=== PATIENT | male | born 1980 | race Caucasian/White ===

== ENCOUNTER 2018-01-21 23:40 | Emergency (ER) | payer SELFPAY ==
[2018-01-22 00:08] LABS: Absolute Lymphocytes (CBC) 2.9 K/uL (0.7-4.9); Absolute Monocytes 0.8 K/uL (0.1-1.3); Absolute Neutrophil 6.7 K/uL (1.8-8.0); Basophils % 0.9 % (0-1.3); Hematocrit 41.3 % (39.6-49.0); Lymphocytes % 27.3 % (15.3-44.8); MCH 33.3 pg (27.0-35.0); MCV 94.7 fL (80-100); MPV 7.9 fL (7.6-11.3); Monocytes % 7.5 % (3.3-12.3); RBC Red Blood Cell Count 4.36 M/uL (4.33-5.43)
[2018-01-22 00:09] LABS: Protime INR 1.06
[2018-01-22 00:21] LABS: Urine Blood NEGATIVE (NEG); Urine Glucose NEGATIVE (NEG); Urine Protein NEGATIVE (NEG); Urine Specific Gravity 1.025 (1.005-1.030); Urine pH 6.5 (5.0-7.0)
[2018-01-22 00:26] LABS: ALT/SGPT 18 U/L (12-78); AST/SGOT 11 U/L (15-37); Albumin 3.8 g/dL (3.4-5.0); Alkaline Phosphatase 66 U/L (45-117); BUN Blood Urea Nitrogen 13 mg/dL (7-18); Bicarbonate 25 mmol/L (21-32); Bilirubin Direct 0.1 mg/dL (0-0.2); Bilirubin Total 0.4 mg/dL (0.2-1.0); Glucose Level 145 mg/dL (74-106); Potassium 3.3 mmol/L (3.5-5.1); Protein, Total 7.1 g/dL (6.4-8.2); Sodium Level 139 mmol/L (136-145)
[2018-01-22 00:27] LABS: Alcohol Serum/Plasma 4 mg/dL (0-3)
[2018-01-22 00:39] LABS: Barbiturates NEGATIVE (NEGATIVE); Benzodiazepines NEGATIVE (NEGATIVE); Cocaine NEGATIVE (NEGATIVE); METHAMPHETAM NEGATIVE (NEGATIVE); Methadone NEGATIVE (NEGATIVE); Opiates NEGATIVE (NEGATIVE); Phencyclidine NEGATIVE (NEGATIVE); THC Cannibis NEGATIVE (NEGATIVE)
[2018-01-22] MEDS ORDERED: POTASSIUM 25 MEQ EFFERV TAB ONE ×2 (01:50→01:54)
[2018-01-22 09:41] LABS: Potassium 3.8 mmol/L (3.5-5.1)
--- NOTE | 2018-01-22 13:53 | EKG ---
Test Date: 2018-01-21 Test Time: 23:49:06 Tube Washer: BP MEASUREMENT RESULTS: Intervals: Rate: 79 CA: 178 QRSD: 88 QT: 350 QTc: 401 [place]: P: 66 CA: 178 QRS: 70 T: 64 INTERPRETIVE STATEMENTS: Normal sinus rhythm Possible Left atrial enlargement ST elevation, consider early repolarization, pericarditis, or injury Nonspecific ST abnormality Abnormal ECG Compared to ECG 11/30/2013 15:44:54 Sinus bradycardia no longer present ST (T wave) deviation still present Electronically Signed On 01-22-18 13:51:49 CDT by Victorino Barrientos
--- NOTE | 2018-01-22 14:48 | ER ---
Nurse's Notes [facility] Name: Tyson Villafana Age: 37 yrs Sex: Male : 1980 Arrival Date: 01/21/2018 Time: 23:43 Bed 7 Private MD: Diagnosis: Suicidal ideations Presentation: 01/21 23:51 Presenting complaint: EMS states: pt wants help to "stay off cush" pt stated he has ak1 thoughts of "cutting my wrist or throat" last used cush 24hrs [employer]. Transition of care: patient was not received from another setting of care. Onset of symptoms is unknown. Risk Assessment: Do you want to hurt yourself or someone else? Patient reports desire/thoughts of hurting themselves or someone else. Provider notified. Initial Sepsis Screen: Does the patient meet any 2 criteria? No. Patient's initial sepsis screen is negative. Does the patient have a suspected source of infection? No. Patient's initial sepsis screen is negative. Care prior to arrival: None. 23:51 Method Of Arrival: EMS: [facility] ak 23:51 Acuity: KARINA 2 ak1 Triage Assessment: 23:53 General: Appears in no apparent distress. slender, Behavior is calm, cooperative. Pain: ak1 Complains of pain in body aches. EENT: No signs and/or symptoms were reported regarding the EENT system. Neuro: Level of Consciousness is awake, alert, obeys commands, Oriented to person, place, time, situation, Chucking And Boring Machine Operator are equal bilaterally Moves all extremities. Gait is steady, Speech is normal. Cardiovascular: No deficits noted. Respiratory: No deficits noted. GI: No signs and/or symptoms were reported involving the gastrointestinal system. : No signs and/or symptoms were reported regarding the genitourinary system. Derm: No signs and/or symptoms reported regarding the dermatologic system. Musculoskeletal: No signs and/or symptoms reported regarding the musculoskeletal system. Historical: - Allergies: 23:53 Phenobarbital; ak1 - Home Meds: 23:53 None [Active]; ak1 - PMHx: 23:53 Seizures; Depression; ak1 - PSHx: 23:53 None; ak1 - Immunization history:: Adult Immunizations unknown. - Social history:: Smoking status: Patient uses tobacco products, smokes one-half pack cigarettes per day, Patient uses street drugs, cush. - Ebola Screening: : No symptoms or risks identified at this time. Screenin:54 Abuse screen: Denies threats or abuse. Denies injuries from another. Nutritional ak1 screening: No deficits noted. Tuberculosis screening: No symptoms or risk factors identified. Fall Risk None identified. Assessment: 01/22 00:09 Reassessment: Patient appears in no apparent distress at this time. see triage ak1 assessment. pt belongings given to security. pt mother contacted as requested by pt. Li Villafana contacted at [phone], message left for Mrs. Villafana to call Katie at [phone] to meet at [facility] to pick up driver Tyson's belonging. 01:00 Reassessment: Patient appears in no apparent distress at this time. No changes from ak1 previously documented assessment. 02:15 Reassessment: Patient appears in no apparent distress at this time. No changes from ak1 previously documented assessment. 03:45 Reassessment: Patient appears in no apparent distress at this time. No changes from ak1 previously documented assessment. jory from [facility] asked for exclusionary form to be faxed. 04:30 Reassessment: Patient appears in no apparent distress at this time. No changes from ak1 previously documented assessment. 05:40 Reassessment: Patient appears in no apparent distress at this time. No changes from ak1 previously documented assessment. 06:10 Reassessment: Patient appears in no apparent distress at this time. No changes from ak1 previously documented assessment. 07:04 Reassessment: Patient appears in no apparent distress at this time. No changes from ak1 previously documented assessment. report given to Luis Acharya RN. 08:42 Reassessment: Patient appears in no apparent distress at this time. Patient and/or sg family updated on plan of care and expected duration. Pain level reassessed. Patient is alert, oriented x 3, equal unlabored respirations, skin warm/dry/pink. awaiting acceptance from a receiving facility at this time, awaiting evaluation by [facility]. 10:08 Reassessment: Patient appears in no apparent distress at this time. Patient is alert, sg oriented x 3, equal unlabored respirations, skin warm/dry/pink. [facility] at bedside at this time, awaiting evaluation by a substance abuse account support analyst to determine best placement for pt, pt remains calm, stated understanding at this time. will continue to monitor. 10:10 Reassessment: Substance abuse account support analyst now at bedside at this time. sg 11:16 Reassessment: Patient appears in no apparent distress at this time. Patient and/or sg family updated on plan of care and expected duration. Pain level reassessed. Patient is alert, oriented x 3, equal unlabored respirations, skin warm/dry/pink. awaiting dispo to treatment facility in [place] at this time, pt stated understanding, will continue to monitor. Vital Signs: 01/21 23:49 BP 132 / 88; Pulse 79; Resp 20; Temp 98.3(O); Pulse Ox 98% on R/A; Weight 61.23 kg (R); ak1 Height 6 ft. 0 in. (182.88 cm) (R); Pain 12/14; 01/22 03:50 BP 125 / 82; Pulse 56; Resp 18; Temp 98.0(O); Pulse Ox 97% on R/A; oe 06:54 BP 108 / 65; Pulse 52; Resp 18; Pulse Ox 97% on R/A; oe 11:00 BP 117 / 81; Pulse 82; Resp 18; Pulse Ox 97% on R/A; dh3 01/21 23:49 Body Mass Index 18.31 (61.23 kg, 182.88 cm) ak1 01/21 23:49 pt c/o back pain and all over body aches ak1 ED Course: 23:43 Patient arrived in ED. ms 23:45 Simeon Hung MD is Attending Physician. gs 23:49 Rosana Brewer, RN is Primary Nurse. ak1 23:49 Arm band placed on Patient placed in an exam room, on a stretcher. ak1 23:52 Triage completed. ak1 23:54 Safety Checks: Personal items have been removed. The door is open or patient has been ak1 placed in a hallway bed/chair. There are no family/friend visitors at this time Sitter present at this time. 23:54 Patient has correct armband on for positive identification. Placed in gown. Bed in low ak1 position. Patient is placed in psych hold. 23:54 No provider procedures requiring assistance completed. ak1 01/22 00:00 Safety Checks: Personal items have been removed. The door is open or patient has been ak1 placed in a hallway bed/chair. There are no family/friend visitors at this time Sitter present at this time. 00:00 Safety checks: Items removed: yes. Door open/sign placed on door: yes. Family/friend oe present: no. Sitter present: Yes. 00:04 Inserted saline lock: 20 gauge in right forearm, using aseptic technique. Blood bp collected. 00:15 Safety Checks: Personal items have been removed. The door is open or patient has been ak1 placed in a hallway bed/chair. There are no family/friend visitors at this time Sitter present at this time. 00:15 Safety checks: Items removed: yes. Door open/sign placed on door: yes. Family/friend oe present: no. Sitter present: Yes. 00:30 Safety Checks: Personal items have been removed. The door is open or patient has been ak1 placed in a hallway bed/chair. There are no family/friend visitors at this time Sitter present at this time. 00:30 Safety checks: Items removed: yes. Door open/sign placed on door: yes. Family/friend oe present: no. Sitter present: Yes. 00:45 Safety Checks: Personal items have been removed. The door is open or patient has been ak1 placed in a hallway bed/chair. There are no family/friend visitors at this time Sitter present at this time. 00:45 Safety checks: Items removed: yes. Door open/sign placed on door: yes. Family/friend oe present: no. Sitter present: Yes. 01:00 Safety Checks: Personal items have been removed. The door is open or patient has been ak1 placed in a hallway bed/chair. There are no family/friend visitors at this time Sitter present at this time. 01:00 Safety checks: Items removed: yes. Door open/sign placed on door: yes. Family/friend oe present: no. Sitter present: Yes. 01:15 Safety Checks: Personal items have been removed. The door is open or patient has been ak1 placed in a hallway bed/chair. There are no family/friend visitors at this time Sitter present at this time. 01:15 Safety checks: Items removed: yes. Door open/sign placed on door: yes. Family/friend oe present: no. Sitter present: Yes. 01:30 Safety Checks: Personal items have been removed. The door is open or patient has been ak1 placed in a hallway bed/chair. There are no family/friend visitors at this time Sitter present at this time. 01:30 Safety checks: Items removed: yes. Door open/sign placed on door: yes. Family/friend oe present: no. Sitter present: Yes. 01:45 Safety Checks: Personal items have been removed. The door is open or patient has been ak1 placed in a hallway bed/chair. There are no family/friend visitors at this time Sitter present at this time. 01:45 Safety checks: Items removed: yes. Door open/sign placed on door: yes. Family/friend oe present: no. Sitter present: Yes. 02:00 Safety Checks: Personal items have been removed. The door is open or patient has been ak1 placed in a hallway bed/chair. There are no family/friend visitors at this time Sitter present at this time. 02:00 Safety checks: Items removed: yes. Door open/sign placed on door: yes. Family/friend oe present: no. Sitter present: Yes. 02:15 Safety Checks: Personal items have been removed. The door is open or patient has been ak1 placed in a hallway bed/chair. There are no family/friend visitors at this time Sitter present at this time. 02:15 Safety checks: Items removed: yes. Door open/sign placed on door: yes. Family/friend oe present: no. Sitter present: Yes. 02:30 Safety Checks: Personal items have been removed. The door is open or patient has been ak1 placed in a hallway bed/chair. There are no family/friend visitors at this time Sitter present at this time. 02:30 Safety checks: Items removed: yes. Door open/sign placed on door: yes. Family/friend oe present: no. Sitter present: Yes. 02:45 Safety Checks: Personal items have been removed. The door is open or patient has been ak1 placed in a hallway bed/chair. There are no family/friend visitors at this time Sitter present at this time. 02:45 Safety checks: Items removed: yes. Door open/sign placed on door: yes. Family/friend oe present: no. Sitter present: Yes. 03:00 Safety Checks: Personal items have been removed. The door is open or patient has been ak1 placed in a hallway bed/chair. There are no family/friend visitors at this time Sitter present at this time. 03:00 Safety checks: Items removed: yes. Door open/sign placed on door: yes. Family/friend oe present: yes. Family/friends encouraged to stay with patient. Sitter present: Yes. 03:15 Safety Checks: Personal items have been removed. The door is open or patient has been ak1 placed in a hallway bed/chair. There are no family/friend visitors at this time Sitter present at this time. 03:15 Safety checks: Items removed: yes. Door open/sign placed on door: yes. Family/friend oe present: yes. Family/friends encouraged to stay with patient. Sitter present: Yes. 03:30 Safety Checks: Personal items have been removed. The door is open or patient has been ak1 placed in a hallway bed/chair. There are no family/friend visitors at this time Sitter present at this time. 03:30 Safety checks: Items removed: yes. Door open/sign placed on door: yes. Family/friend oe present: yes. Family/friends encouraged to stay with patient. Sitter present: Yes. 03:45 Safety Checks: Personal items have been removed. The door is open or patient has been ak1 placed in a hallway bed/chair. There are no family/friend visitors at this time Sitter present at this time. 03:45 Safety checks: Items removed: yes. Door open/sign placed on door: yes. Family/friend oe present: yes. Family/friends encouraged to stay with patient. Sitter present: Yes. 04:00 Safety Checks: Personal items have been removed. The door is open or patient has been ak1 placed in a hallway bed/chair. There are no family/friend visitors at this time Sitter present at this time. 04:00 Safety checks: Items removed: yes. Door open/sign placed on door: yes. Family/friend oe present: no. Sitter present: Yes. 04:15 Safety Checks: Personal items have been removed. The door is open or patient has been ak1 placed in a hallway bed/chair. There are no family/friend visitors at this time Sitter present at this time. 04:15 Safety checks: Items removed: yes. Door open/sign placed on door: no. Family/friend oe present: no. Sitter present: Yes. 04:30 Safety Checks: Personal items have been removed. The door is open or patient has been ak1 placed in a hallway bed/chair. There are no family/friend visitors at this time Sitter present at this time. 04:30 Safety checks: Items removed: yes. Door open/sign placed on door: no. Family/friend oe present: no. Sitter present: Yes. 04:45 Safety Checks: Personal items have been removed. The door is open or patient has been ak1 placed in a hallway bed/chair. There are no family/friend visitors at this time Sitter present at this time. 04:45 Safety checks: Items removed: no. Reason for not removing items: Door open/sign placed oe on door: yes. Family/friend present: no. Sitter present: Yes. 05:00 Safety Checks: Personal items have been removed. The door is open or patient has been ak1 placed in a hallway bed/chair. There are no family/friend visitors at this time Sitter present at this time. 05:00 Safety checks: Items removed: no. Reason for not removing items: Door open/sign placed oe on door: yes. Family/friend present: no. Sitter present: Yes. 05:15 Safety Checks: Personal items have been removed. The door is open or patient has been ak1 placed in a hallway bed/chair. There are no family/friend visitors at this time Sitter present at this time. 05:15 Safety checks: Items removed: yes. Door open/sign placed on door: no. Family/friend oe present: no. Sitter present: Yes. 05:30 Safety Checks: Personal items have been removed. The door is open or patient has been ak1 placed in a hallway bed/chair. There are no family/friend visitors at this time Sitter present at this time. 05:30 Safety checks: Items removed: yes. Door open/sign placed on door: yes. Family/friend oe present: no. Sitter present: Yes. 05:45 Safety Checks: Personal items have been removed. The door is open or patient has been ak1 placed in a hallway bed/chair. There are no family/friend visitors at this time Sitter present at this time. 05:45 Safety checks: Items removed: yes. Door open/sign placed on door: yes. Family/friend oe present: no. Sitter present: Yes. 06:00 Safety Checks: Personal items have been removed. The door is open or patient has been ak1 placed in a hallway bed/chair. There are no family/friend visitors at this time Sitter present at this time. 06:00 Safety checks: Items removed: yes. Door open/sign placed on door: no. Family/friend oe present: no. Sitter present: Yes. 06:15 Safety Checks: Personal items have been removed. The door is open or patient has been ak1 placed in a hallway bed/chair. There are no family/friend visitors at this time Sitter present at this time. 06:15 Safety checks: Items removed: yes. Door open/sign placed on door: yes. Family/friend oe present: no. Sitter present: Yes. 06:30 Safety Checks: Personal items have been removed. The door is open or patient has been ak1 placed in a hallway bed/chair. There are no family/friend visitors at this time Sitter present at this time. 06:30 Safety checks: Items removed: yes. Door open/sign placed on door: yes. Family/friend oe present: no. Sitter present: Yes. 06:45 Safety Checks: Personal items have been removed. The door is open or patient has been ak1 placed in a hallway bed/chair. There are no family/friend visitors at this time Sitter present at this time. 06:45 Safety checks: Items removed: yes. Door open/sign placed on door: yes. Family/friend oe present: no. Sitter present: Yes. 06:53 Safety checks: Items removed: yes. Door open/sign placed on door: yes. Family/friend oe present: no. Sitter present:. 07:00 Safety Checks: Personal items have been removed. The door is open or patient has been ak1 placed in a hallway bed/chair. There are no family/friend visitors at this time Sitter present at this time. 07:07 Primary Nurse role handed off by Rosana Brewer CINTHIA sg 07:07 Luis Cherry, RN is Primary Nurse. sg 07:15 Safety Checks: Personal items have been removed. The door is open or patient has been sg placed in a hallway bed/chair. There are no family/friend visitors at this time Sitter present at this time. 07:30 Safety Checks: Personal items have been removed. The door is open or patient has been sg placed in a hallway bed/chair. There are no family/friend visitors at this time Sitter present at this time. 07:36 Attending Physician role handed off by Simeon Hung MD rn 07:36 Tahir Rodas MD is Attending Physician. rn 07:45 Safety Checks: Personal items have been removed. The door is open or patient has been sg placed in a hallway bed/chair. There are no family/friend visitors at this time Sitter present at this time. 08:00 Safety Checks: Personal items have been removed. The door is open or patient has been sg placed in a hallway bed/chair. There are no family/friend visitors at this time Sitter present at this time. 08:15 Safety Checks: Personal items have been removed. The door is open or patient has been sg placed in a hallway bed/chair. There are no family/friend visitors at this time Sitter present at this time. 08:24 called and spoke with Ninfa at [facility]. she will page out a screener to come eb evaluate patient for potential transfer. 08:30 Safety Checks: Personal items have been removed. The door is open or patient has been sg placed in a hallway bed/chair. There are no family/friend visitors at this time Sitter present at this time. 08:38 Diet: Patient given a regular meal tray. Tolerated well. sg 08:45 Safety Checks: Personal items have been removed. The door is open or patient has been sg placed in a hallway bed/chair. There are no family/friend visitors at this time Sitter present at this time. 08:54 Cookie from [facility] called and said she's on her way she is leaving [place] soon. eb 09:00 Safety Checks: Personal items have been removed. The door is open or patient has been sg placed in a hallway bed/chair. There are no family/friend visitors at this time Sitter present at this time. 09:05 connected [facility] with the nurse for patient consulation. eb 09:15 Safety Checks: Personal items have been removed. The door is open or patient has been sg placed in a hallway bed/chair. There are no family/friend visitors at this time Sitter present at this time. 09:15 Repeat lab(s) drawn. by az, sent to lab. [facility] 09:30 Safety Checks: Personal items have been removed. The door is open or patient has been sg placed in a hallway bed/chair. There are no family/friend visitors at this time Sitter present at this time. 09:45 Safety Checks: Personal items have been removed. The door is open or patient has been sg placed in a hallway bed/chair. There are no family/friend visitors at this time Sitter present at this time. 10:00 Safety Checks: Personal items have been removed. The door is open or patient has been sg placed in a hallway bed/chair. There are no family/friend visitors at this time Sitter present at this time. 10:15 Safety Checks: Personal items have been removed. The door is open or patient has been sg placed in a hallway bed/chair. There are no family/friend visitors at this time Sitter present at this time. 10:27 refaxed updated nurse notes and lab results to [facility] as requested/. eb 10:30 Safety Checks: Personal items have been removed. The door is open or patient has been sg placed in a hallway bed/chair. There are no family/friend visitors at this time Sitter present at this time. 10:45 Safety Checks: Personal items have been removed. The door is open or patient has been sg placed in a hallway bed/chair. There are no family/friend visitors at this time Sitter present at this time. Administered Medications: 01:50 Drug: Potassium Effervescent Tablet 25 mEq Route: PO; ak1 01:50 Follow up: Response: No adverse reaction ak1 Outcome: 14:48 Discharge ordered by . rn 14:52 Patient left the ED. Signatures: Luis Cherry RN RN sg Solis, Maria ms Nieto, Roman, MD MD rn Krenek, Amber, RN RN ak1 Meir Asher Deanna [facility] Simeon Hung MD MD gs Peltier, Brian, RN RN Ana Bolanos Corrections: (The following items were deleted from the chart) 03:52 03:13 Safety checks: Items removed: yes. Door open/sign placed on door: yes. oe Family/friend present: yes. Family/friends encouraged to stay with patient. Sitter present: Yes. oe 05:53 05:22 Safety checks: Items removed: yes. Door open/sign placed on door: yes. oe Family/friend present: no. Sitter present: Yes. oe
--- NOTE | 2018-01-22 14:48 | EDPHYS ---
Physician Documentation [facility] Name: Tyson Villafana Age: 37 yrs Sex: Male : 1980 Arrival Date: 01/21/2018 Time: 23:43 Bed 7 Private MD: ED Physician Tahir Rodas HPI: 01/22 01:54 This 37 yrs old Male presents to ER via EMS with unknown complaint. gs 01:54 The patient presents to the emergency department with suicide ideation. Onset: The gs symptoms/episode began/occurred 2 day(s) ago, and became worse and became persistent. Past psychiatric history: Prior diagnosis: depression. Associated signs and symptoms: Pertinent positives; substance abuse, suicide ideation, Pertinent negatives: delusions, hallucinations. Severity of symptoms: At their worst the symptoms were moderate in the emergency department the symptoms are unchanged. The patient has experienced similar episodes in the past, multiple times. Historical: - Allergies: 01/21 23:53 Phenobarbital; ak1 - Home Meds: 23:53 None [Active]; ak1 - PMHx: 23:53 Seizures; Depression; ak1 - PSHx: 23:53 None; ak1 - Immunization history:: Adult Immunizations unknown. - Social history:: Smoking status: Patient uses tobacco products, smokes one-half pack cigarettes per day, Patient uses street drugs, cush. - Ebola Screening: : No symptoms or risks identified at this time. ROS: 01/22 04:12 All other systems are negative. gs Exam: 04:12 Head/Face: Normocephalic, atraumatic. Eyes: Pupils equal round and reactive to light, gs extra-ocular motions intact. Lids and lashes normal. Conjunctiva and sclera are non-icteric and not injected. Cornea within normal limits. Periorbital areas with no swelling, redness, or edema. ENT: Nares patent. No nasal discharge, no septal abnormalities noted. Tympanic membranes are normal and external auditory canals are clear. Oropharynx with no redness, swelling, or masses, exudates, or evidence of obstruction, uvula midline. Mucous membranes moist. Neck: Trachea midline, no thyromegaly or masses palpated, and no cervical lymphadenopathy. Supple, full range of motion without nuchal rigidity, or vertebral point tenderness. No Meningismus. Chest/axilla: Normal chest wall appearance and motion. Nontender with no deformity. No lesions are appreciated. Cardiovascular: Regular rate and rhythm with a normal S1 and S2. No gallops, murmurs, or rubs. Normal PMI, no JVD. No pulse deficits. Respiratory: Lungs have equal breath sounds bilaterally, clear to auscultation and percussion. No rales, rhonchi or wheezes noted. No increased work of breathing, no retractions or nasal flaring. Abdomen/GI: Soft, non-tender, with normal bowel sounds. No distension or tympany. No guarding or rebound. No evidence of tenderness throughout. Back: No spinal tenderness. No costovertebral tenderness. Full range of motion. Skin: Warm, dry with normal turgor. Normal color with no rashes, no lesions, and no evidence of cellulitis. MS/ Extremity: Pulses equal, no cyanosis. Neurovascular intact. Full, normal range of motion. Neuro: Awake and alert, GCS 15, oriented to person, place, time, and situation. Cranial nerves II-XII grossly intact. Motor strength 5/5 in all extremities. Sensory grossly intact. Cerebellar exam normal. Normal gait. 04:12 Constitutional: The patient appears alert, awake. 04:12 Psych: Behavior/mood is pleasant, Affect is calm, Oriented to person, place, time, Patient having thoughts of suicide. Plan for suicide is slit wrists Judgement / Insight is impaired. Delusions/hallucinations are not present. Vital Signs: 01/21 23:49 BP 132 / 88; Pulse 79; Resp 20; Temp 98.3(O); Pulse Ox 98% on R/A; Weight 61.23 kg (R); ak1 Height 6 ft. 0 in. (182.88 cm) (R); Pain 12/14; 01/22 03:50 BP 125 / 82; Pulse 56; Resp 18; Temp 98.0(O); Pulse Ox 97% on R/A; oe 06:54 BP 108 / 65; Pulse 52; Resp 18; Pulse Ox 97% on R/A; oe 11:00 BP 117 / 81; Pulse 82; Resp 18; Pulse Ox 97% on R/A; dh3 01/21 23:49 Body Mass Index 18.31 (61.23 kg, 182.88 cm) ak1 01/21 23:49 pt c/o back pain and all over body aches ak1 MDM: 23:50 Patient medically screened. 01/22 04:12 Differential diagnosis: drug withdrawal. acute psychotic break, depression, psychosis gs secondary to non-compliance. Data reviewed: vital signs, nurses notes. Response to treatment: the patient's symptoms have mildly improved after treatment, and as a result, I will. 07:36 ED course: Pt sleeping comfortably, stable vitals, awaiting psychiatric evaluation and rn possible transfer.. 11:18 ED course: Evaluated by mental health professional, they state have a facility in [facility], will provide transportation, when we discharge from our facility, they kindly ask for a couple of hours to organize, and are comfortable transporting this patient, stating they transfer patients frequently by POV. . 14:47 ED course: Mental health professional here to transport patient.. rn 01/21 23:51 Order name: Acetaminophen; Complete Time: 01:10 01/21 23:51 Order name: Basic Metabolic Panel; Complete Time: 01:10 01/21 23:51 Order name: CBC with Diff; Complete Time: 01:10 01/21 23:51 Order name: ETOH Level; Complete Time: 01:10 01/21 23:51 Order name: Hepatic Function; Complete Time: 01:10 01/21 23:51 Order name: PT-INR; Complete Time: 01:10 01/21 23:51 Order name: Salicylate; Complete Time: 01:10 01/21 23:51 Order name: Urine Drug Screen; Complete Time: 01:10 01/21 23:51 Order name: EKG; Complete Time: 23:51 01/22 00:18 Order name: Urine Dipstick--Ancillary (enter results); Complete Time: 01:10 ms 01/22 07:57 Order name: Diet Regular; Complete Time: 07:58 dh3 01/22 09:08 Order name: Basic Metabolic Panel; Complete Time: 09:45 hb 01/22 11:10 Order name: Diet Regular; Complete Time: 11:10 sg 01/21 23:51 Order name: EKG - Nurse/Tech; Complete Time: 00:04 01/21 23:51 Order name: IV Saline Lock; Complete Time: 00:04 01/21 23:51 Order name: Labs collected and sent; Complete Time: 00:04 01/21 23:51 Order name: Urine Dipstick-Ancillary (obtain specimen); Complete Time: 00:11 Administered Medications: 01:50 Drug: Potassium Effervescent Tablet 25 mEq Route: PO; ak1 01:50 Follow up: Response: No adverse reaction ak1 Disposition: 01/22/18 14:48 Discharged to Home. Impression: Suicidal ideations. - Condition is Stable. - Medication Reconciliation Form, Thank You Letter, Antibiotic Education, Prescription Opioid Use form. - Follow up: Private Physician; When: Upon discharge from the Emergency Department; Reason: Recheck today's complaints, Re-evaluation by your physician. - Problem is new. - Symptoms have improved. Signatures: Dispatcher [employer] EDMS Luis Cherry RN Tahir Hunter MD MD rn Krenek, Amber, RN RN ak1 Simeon Hung MD MD gs Corrections: (The following items were deleted from the chart) 14:52 14:48 01/22/2018 14:48 Discharged to Home. Impression: Suicidal ideations. Condition is sg Stable. Forms are Medication Reconciliation Form, Thank You Letter, Antibiotic Education, Prescription Opioid Use. Follow up: Private Physician; When: Upon discharge from the Emergency Department; Reason: Recheck today's complaints, Re-evaluation by your physician. Problem is new. Symptoms have improved. rn
== END 2018-01-22 14:52 | disposition home or self-care (01) ==
LOC: ER 23:40
DX: R45.851 Suicidal ideations (principal); Z88.8 Allergy status to other drugs, medicaments and biological substances; F17.210 Nicotine dependence, cigarettes, uncomplicated
CPT/HCPCS: 36415; 80048; 80076; 80307; 80320; 80329; 81003; 85025; 85610; 93005; 99284

== ENCOUNTER 2019-08-19 21:34 | Emergency (ER) | payer SELFPAY ==
--- OUTSIDE RECORDS SUMMARY | 2019-08-19 21:36 | XMS REPORT ---
:1980 [facility] Address [address] [place] [address] Dr. Conley [address] [place] [id number] Care Team Providers Name Role Phone Unavailable Unavailable Unavailable Problems This patient has no known problems. Allergies, Adverse Reactions, Alerts This patient has no known allergies or adverse reactions. Medications This patient has no known medications.
[2019-08-19] MEDS ORDERED: NA CHLORIDE 0.9% 1,000 ML ONE (22:00)
[2019-08-19] MEDS ORDERED: ASPIRIN 81 MG CHEWABLE TABLET ONE (22:15)
[2019-08-19 22:25] LABS: Absolute Lymphocytes (CBC) 2.6 K/uL (0.7-4.9); Hematocrit 43.7 % (39.6-49.0); Lymphocytes % 31.2 % (15.3-44.8); MPV 7.8 fL (7.6-11.3); RBC Red Blood Cell Count 4.47 M/uL (4.33-5.43)
[2019-08-19 22:45] LABS: ALT/SGPT 60 U/L (12-78); AST/SGOT 31 U/L (15-37); Albumin 3.9 g/dL (3.4-5.0); Alkaline Phosphatase 73 U/L (45-117); BUN Blood Urea Nitrogen 10 mg/dL (7-18); Bicarbonate 25 mmol/L (21-32); Bilirubin Direct 0.2 mg/dL (0-0.2); Bilirubin Total 0.7 mg/dL (0.2-1.0); Creatine Phosphokinase 164 U/L (39-308); Glucose Level 95 mg/dL (74-106); Magnesium 2.3 mg/dL (1.8-2.4); NT PRO-BNP 66 pg/mL (<125); Potassium 3.5 mmol/L (3.5-5.1); Protein, Total 7.2 g/dL (6.4-8.2); Sodium Level 141 mmol/L (136-145); Troponin (Emerg Dept Use Only) < 0.02 ng/mL (0.0-0.045)
--- NOTE | 2019-08-20 00:54 | EDPHYS ---
Physician Documentation [facility] Name: Tyson Villafana Age: 38 yrs Sex: Male : 1980 Arrival Date: 08/19/2019 Time: 21:35 Bed 8 Private MD: ED Physician Tahir Rodas HPI: 08/19 22:00 This 38 yrs old Male presents to ER via EMS with complaints of General cp Weakness. 22:00 The patient's problem is reported as weakness, that is generalized. cp 22:00 Onset: The symptoms/episode began/occurred today. Duration: The episode is continuous. cp Associated signs and symptoms: Pertinent positives: elevated blood pressure. Historical: - Allergies: :44 Phenobarbital; rr5 - Home Meds: :44 None [Active]; rr5 - PMHx: 21:44 Depression; Seizures; rr5 - PSHx: 21:44 None; rr5 - Immunization history:: Adult Immunizations up to date. - Coronavirus screen:: The patient has NOT traveled to [place] in the past 14 days. - Social history:: Smoking status: Patient reports the use of cigarette tobacco products, smokes one-half pack cigarettes per day, Patient uses alcohol, occasionally. Patient/guardian denies using street drugs. - Ebola Screening: : Patient negative for fever greater than or equal to 101.5 degrees Fahrenheit, and additional compatible Ebola Virus Disease symptoms Patient denies exposure to infectious person Patient denies travel to an Ebola-affected area in the 21 days before illness onset. ROS: 22:05 Constitutional: Negative for body aches, chills, fever, poor PO intake. cp 22:05 Eyes: Negative for injury, pain, redness, and discharge. cp 22:05 ENT: Negative for drainage from ear(s), ear pain, sore throat, difficulty swallowing, difficulty handling secretions. 22:05 Cardiovascular: Negative for chest pain, edema, palpitations. 22:05 Respiratory: Negative for cough, shortness of breath, wheezing. 22:05 Abdomen/GI: Negative for abdominal pain, nausea, vomiting, and diarrhea. 22:05 Skin: Negative for rash. 22:05 Neuro: Positive for weakness, Negative for altered mental status, dizziness, headache, syncope. 22:05 All other systems are negative. Exam: 22:15 ECG was reviewed by the Attending Physician. cp 22:15 Constitutional: The patient appears in no acute distress, alert, awake, cp non-diaphoretic, non-toxic, well developed, well nourished. 22:15 Head/Face: Normocephalic, atraumatic. cp 22:15 Eyes: Periorbital structures: appear normal, Pupils: equal, round, and reactive to light and accomodation, Extraocular movements: intact throughout, Conjunctiva: normal, no exudate, no injection, Sclera: no appreciated abnormality, Lids and lashes: appear normal, bilaterally. 22:15 ENT: External ear(s): are unremarkable, Ear canal(s): are normal, clear, TM's: bulging, is not appreciated, bilaterally, dullness, bilaterally, erythema, is not appreciated, bilaterally, Nose: is normal, Mouth: Lips: moist, Oral mucosa: pink and intact, moist, Posterior pharynx: is normal, airway is patent, no erythema, no exudate. 22:15 Neck: ROM/movement: is normal, is supple, no meningismus, no nuchal rigidity. 22:15 Chest/axilla: Inspection: normal, Palpation: is normal, no crepitus, no tenderness. 22:15 Cardiovascular: Rate: normal, Rhythm: regular, Heart sounds: murmur, not appreciated, Edema: is not appreciated. 22:15 Respiratory: the patient does not display signs of respiratory distress, Respirations: normal, no use of accessory muscles, labored breathing, is not present, Breath sounds: are clear throughout, no decreased breath sounds. 22:15 Abdomen/GI: Inspection: abdomen appears normal, Bowel sounds: active, all quadrants, Palpation: abdomen is soft and non-tender, in all quadrants. 22:15 Back: pain, is absent, ROM is normal. 22:15 Skin: no rash present. 22:15 Neuro: Orientation: to person, place \T\ time. Mentation: is normal, Cerebellar function: is grossly normal, Motor: moves all fours, strength is normal, Sensation: is normal. 08/20 00:45 Radiologist reports: head CT negative acute findings cp Vital Signs: 08/19 21:40 BP 134 / 101; Pulse 75; Resp 17; Temp 98.3; Pulse Ox 99% ; Weight 81.65 kg; Height 6 rr5 ft. 0 in. (182.88 cm); Pain 0/10; 23:00 BP 126 / 78; Pulse 79; Resp 19; Pulse Ox 99% ; rr5 08/20 00:00 BP 123 / 81; Pulse 70; Resp 16; Pulse Ox 99% ; Pain 0/10; rr5 01:00 BP 115 / 70; Pulse 75; Resp 17; Temp 98.1; Pulse Ox 99% on R/A; rr5 08/19 21:40 Body Mass Index 24.41 (81.65 kg, 182.88 cm) rr5 MDM: 08/19 21:45 Patient medically screened. cp 08/20 00:52 Data reviewed: vital signs, nurses notes, lab test result(s), EKG, radiologic studies, cp CT scan. 00:52 Test interpretation: by ED physician or midlevel provider: ECG. Counseling: I had a cp detailed discussion with the patient and/or guardian regarding: the historical points, exam findings, and any diagnostic results supporting the discharge/admit diagnosis, lab results, radiology results, the need for outpatient follow up, a family practitioner, to return to the emergency department if symptoms worsen or persist or if there are any questions or concerns that arise at home. Response to treatment: the patient's symptoms have markedly improved after treatment, and as a result, I will discharge patient. 08/19 21:45 Order name: Basic Metabolic Panel cp 08/19 21:45 Order name: CBC with Diff cp 08/19 21:45 Order name: LFT's cp 08/19 21:45 Order name: Magnesium cp 08/19 21:45 Order name: NT PRO-BNP cp 08/19 21:45 Order name: PT-INR cp 08/19 21:45 Order name: Troponin (emerg Dept Use Only) cp 08/19 21:45 Order name: CK cp 08/19 21:45 Order name: Influenza Screen (a \T\ B) cp 08/19 22:42 Order name: CBC with Automated Diff; Complete Time: 23:46 EDMS 08/19 23:46 Interpretation: Normal except: MCV 97.8. cp 08/19 22:42 Order name: Protime (+INR); Complete Time: 23:46 EDMS 08/19 22:46 Order name: Basic Metabolic Panel; Complete Time: 23:46 EDMS 08/19 23:46 Interpretation: Normal except: CL 108; GFR 83. cp 02/ 22:46 Order name: Liver (Hepatic) Function; Complete Time: 23:46 EDMS 02 22:46 Order name: Creatine Phosphokinase; Complete Time: 23:46 EDMS 08/19 21:45 Order name: EKG; Complete Time: 21:47 cp 02 21:45 Order name: Cardiac monitoring; Complete Time: 22:07 cp 08/19 21:45 Order name: EKG - Nurse/Tech; Complete Time: 22:07 cp 08/19 21:45 Order name: IV Saline Lock; Complete Time: 22:07 cp 08/19 21:45 Order name: Labs collected and sent; Complete Time: 22:07 cp 08/19 21:45 Order name: O2 Per Protocol; Complete Time: 22:07 cp 08/19 21:45 Order name: O2 Sat Monitoring; Complete Time: 22:07 cp 08/19 22:46 Order name: Troponin (Emerg Dept Use Only); Complete Time: 23:46 EDMS 08/19 23:46 Interpretation: TROPED < 0.02; Reviewed. cp 08/19 22:46 Order name: NT PRO-BNP; Complete Time: 23:46 EDMS 08/19 22:46 Order name: Magnesium; Complete Time: 23:46 EDMS 08/19 22:47 Order name: Influenza Screen (A ; Complete Time: 23:46 EDMS 08/19 23:47 Order name: CT Head Brain wo Cont cp EC/13 22:15 Rate is 68 beats/min. Rhythm is regular. HI interval is normal. QRS interval is normal. cp QT interval is normal. Interpreted by me. Reviewed by me. Administered Medications: 22:07 Drug: NS 0.9% 1000 ml Route: IV; Rate: 1 bolus; Site: right antecubital; rr5 23:00 Follow up: Response: No adverse reaction; IV Status: Completed infusion; IV Intake: rr5 1000ml 22:16 Drug: Aspirin Chewable Tablet 324 mg Route: PO; rr5 23:15 Follow up: Response: No adverse reaction rr5 Disposition: 08/20 01:57 Co-signature as Attending Physician, Tahir Rodas MD. rn Disposition: 08/20/19 00:53 Discharged to Home. Impression: Weakness - general, Elevated blood-pressure reading, without diagnosis of hypertension. - Condition is Stable. - Discharge Instructions: Weakness, How to Take Your Blood Pressure, [id number], Form - Blood Pressure Record Sheet. - Medication Reconciliation Form, Thank You Letter, Antibiotic Education, Prescription Opioid Use form. - Follow up: Private Physician; When: 2 - 3 days; Reason: Recheck today's complaints. - Problem is new. - Symptoms have improved. Signatures: Dispatcher [employer] EDMS Tahir Rodas MD MD rn Axel Willis PA PA cp Roque, Raymond RN RN rr5 Corrections: (The following items were deleted from the chart) 08/19 22:40 22:05 This 38 yrs old Male presents to ER via EMS with complaints of General cp Weakness. cp 08/20 01:10 00:53 08/20/2019 00:53 Discharged to Home. Impression: Weakness - general; Elevated rr5 blood-pressure reading, without diagnosis of hypertension. Condition is Stable. Forms are Medication Reconciliation Form, Thank You Letter, Antibiotic Education, Prescription Opioid Use. Follow up: Private Physician; When: 2 - 3 days; Reason: Recheck today's complaints. Problem is new. Symptoms have improved. cp
--- NOTE | 2019-08-20 00:54 | ER ---
Nurse's Notes [facility] Name: Tyson Villafana Age: 38 yrs Sex: Male : 1980 Arrival Date: 08/19/2019 Time: 21:35 Bed 8 Private MD: Diagnosis: Weakness-general;Elevated blood-pressure reading, without diagnosis of hypertension Presentation: 08/19 21:40 Presenting complaint: EMS states: complaint of generalized body weakness started 4 rr5 hours ago. he reported his BP 180/140 mmHg, we got BP rechecked 153/78 mmHg. 21:40 Transition of care: patient was not received from another setting of care. Onset of rr5 symptoms was August 19, 2019 at 18:00. Risk Assessment: Do you want to hurt yourself or someone else? Patient reports no desire to harm self or others. Initial Sepsis Screen: Does the patient meet any 2 criteria? No. Patient's initial sepsis screen is negative. Does the patient have a suspected source of infection? No. Patient's initial sepsis screen is negative. Care prior to arrival: None. 21:40 Method Of Arrival: EMS: [facility] rr5 21:40 Acuity: KARINA 3 rr5 21:44 Note patient reported he had a 2 cans of beer tonight. around \S\PM he feels dizzy, rr5 nausea, lightheaded. Historical: - Allergies: 21:44 Phenobarbital; rr5 - Home Meds: 21:44 None [Active]; rr5 - PMHx: 21:44 Depression; Seizures; rr5 - PSHx: 21:44 None; rr5 - Immunization history:: Adult Immunizations up to date. - Coronavirus screen:: The patient has NOT traveled to [place] in the past 14 days. - Social history:: Smoking status: Patient reports the use of cigarette tobacco products, smokes one-half pack cigarettes per day, Patient uses alcohol, occasionally. Patient/guardian denies using street drugs. - Ebola Screening: : Patient negative for fever greater than or equal to 101.5 degrees Fahrenheit, and additional compatible Ebola Virus Disease symptoms Patient denies exposure to infectious person Patient denies travel to an Ebola-affected area in the 21 days before illness onset. Screenin:45 VAN Screening: Arm Drift: Patient shows no arm weakness. Patient is VAN negative. rr5 22:08 Abuse screen: Denies threats or abuse. Denies injuries from another. Nutritional rr5 screening: No deficits noted. Tuberculosis screening: No symptoms or risk factors identified. Fall Risk IV access (20 points). Total Fuller Fall Scale indicates No Risk (0-24 pts). Assessment: 21:40 General: Appears in no apparent distress. comfortable, Behavior is calm, cooperative, rr5 appropriate for age. 21:40 Pain: Denies pain. Neuro: Level of Consciousness is awake, alert, obeys commands, rr5 Oriented to person, place, time, situation, Appropriate for age Ore Buyer are equal bilaterally Speech is normal, Facial symmetry appears normal, Reports weakness in generalized. Cardiovascular: Capillary refill < 3 seconds Patient's skin is warm and dry. Respiratory: Airway is patent Respiratory effort is even, unlabored, Respiratory pattern is regular, symmetrical. GI: Abdomen is round non-distended, Reports nausea. : No signs and/or symptoms were reported regarding the genitourinary system. EENT: No signs and/or symptoms were reported regarding the EENT system. Derm: Skin is intact, is healthy with good turgor, Skin temperature is warm. Musculoskeletal: Circulation, motion, and sensation intact. Capillary refill < 3 seconds. 22:50 Reassessment: Patient appears in no apparent distress at this time. Patient and/or rr5 family updated on plan of care and expected duration. Pain level reassessed. Patient is alert, oriented x 3, equal unlabored respirations, skin warm/dry/pink. awaiting for results. 08/20 00:00 Reassessment: Patient appears in no apparent distress at this time. Patient and/or rr5 family updated on plan of care and expected duration. Pain level reassessed. Patient is alert, oriented x 3, equal unlabored respirations, skin warm/dry/pink. awaiting for review. no complaints made. 01:10 Reassessment: Patient appears in no apparent distress at this time. Patient is alert, rr5 oriented x 3, equal unlabored respirations, skin warm/dry/pink. review done ED provider explained to patient the plan of care. discharge instruction given and explained without complaints made. Patient states feeling better. Patient states symptoms have improved. Vital Signs: 08/19 21:40 BP 134 / 101; Pulse 75; Resp 17; Temp 98.3; Pulse Ox 99% ; Weight 81.65 kg; Height 6 rr5 ft. 0 in. (182.88 cm); Pain 0/10; 23:00 BP 126 / 78; Pulse 79; Resp 19; Pulse Ox 99% ; rr5 08/20 00:00 BP 123 / 81; Pulse 70; Resp 16; Pulse Ox 99% ; Pain 0/10; rr5 01:00 BP 115 / 70; Pulse 75; Resp 17; Temp 98.1; Pulse Ox 99% on R/A; rr5 08/19 21:40 Body Mass Index 24.41 (81.65 kg, 182.88 cm) rr5 ED Course: 08/19 21:35 Patient arrived in ED. ds1 21:38 Axel Willis PA is PHCP. cp 21:38 Tahir Rodas MD is Attending Physician. cp 21:43 Triage completed. rr5 21:45 Arm band placed on right wrist. rr5 21:50 Patient has correct armband on for positive identification. Placed in gown. Bed in low rr5 position. Call light in reach. Side rails up X2. preventive maintenance coordinator on. Pulse ox on. NIBP on. 21:55 Finn Suarez, RN is Primary Nurse. rr5 22:00 Inserted saline lock: 18 gauge in right antecubital area, using aseptic technique. rr5 ,using aseptic technique. inserted by [facility] Blood collected. 22:05 Flu and/or RSV swab sent to lab. rr5 22:08 EKG done, by ED staff, reviewed by Finn Suarez RN. rr5 08/20 01:10 No provider procedures requiring assistance completed. IV discontinued, intact, rr5 bleeding controlled, No redness/swelling at site. Pressure dressing applied. Administered Medications: 08/19 22:07 Drug: NS 0.9% 1000 ml Route: IV; Rate: 1 bolus; Site: right antecubital; rr5 23:00 Follow up: Response: No adverse reaction; IV Status: Completed infusion; IV Intake: rr5 1000ml 22:16 Drug: Aspirin Chewable Tablet 324 mg Route: PO; rr5 23:15 Follow up: Response: No adverse reaction rr5 Intake: 23:00 IV: 1000ml; Total: 1000ml. rr5 Outcome: 08/20 00:53 Discharge ordered by . cp 01:10 Patient left the ED. rr5 01:10 Discharged to home ambulatory. rr5 01:10 Condition: stable 01:10 Discharge instructions given to patient, Instructed on discharge instructions, follow up and referral plans. Demonstrated understanding of instructions, follow-up care. Signatures: Karen Villa ds1 Axel Willis PA PA cp Roque, Raymond, RN RN rr5
--- NOTE | 2019-08-20 08:36 | RAD REPORT ---
EXAM DESCRIPTION: CT - Head Brain Wo Cont - 08/20/2019 1:51 am CLINICAL HISTORY: The patient is 38 years old and is Male; elevated blood pressure;Weakness TECHNIQUE: Axial computed tomography images of the head/brain without intravenous contrast. Sagitt al and coronal reformatted images were created and reviewed. This CT exam was performed using one o r more of the following dose reduction techniques: automated exposure control, adjustment of the mA and/or kV according to patient size, and/or use of iterative reconstruction technique. COMPARISON: No relevant prior studies available. FINDINGS: BRAIN: Unremarkable. The aguirre-white matter differentiation is preserved . No hemorrhag e. No significant white matter disease. No edema. No extra-axial fluid collections. VENTRICLES: Unremarkable. No ventriculomegaly. BONES/JOINTS: No acute fracture. SOFT TISSUES: Unremarkable. SINUSES: Unremarkable as visualized. No acute sinusitis. MASTOID AIR CELLS: Unremarkable as visualized. No mastoid effusion. ORBITS: Unremarkable as visualized. IMPRESSION: No acute intracranial findings. Electronically signed by: Ely Mills MD 08/20/2019 12:38 AM POLY AREA SUPERVISOR Due to temporary technical issues with the PACS/Fluency reporting system, reports are being signed by the in house radiologist as a courtesy to ensure prompt reporting. The interpreting radiologist is f ully responsible for the content of the report.
--- NOTE | 2019-08-20 13:35 | EKG ---
Test Date: 2019-08-19 Test Time: 22:00:49 Language Arts Teacher: RR MEASUREMENT RESULTS: Intervals: Rate: 68 IA: 170 QRSD: 96 QT: 370 QTc: 393 [place]: P: 61 IA: 170 QRS: 82 T: 64 INTERPRETIVE STATEMENTS: Normal sinus rhythm Normal ECG Compared to ECG 01/21/2018 23:49:06 ST (T wave) deviation no longer present Electronically Signed On 08-20-19 13:34:24 VARNISH MIXER by Terry Reich
[2019-08-20 16:50] VITALS: TEMP 98.3; O2SAT 99
[2019-08-20 16:53] VITALS: BP 123/81
== END 2019-08-20 01:10 | disposition home or self-care (01) ==
LOC: ER 21:34
DX: R53.1 Weakness (principal); R03.0 Elevated blood-pressure reading, without diagnosis of hypertension
CPT/HCPCS: 36415; 70450; 80048; 80076; 82550; 83735; 83880; 84484; 85025; 85610; 87804; 93005; 96360; 99284; J7030

== ENCOUNTER 2020-08-05 19:36 | Emergency (ER) | payer SELFPAY ==
--- OUTSIDE RECORDS SUMMARY | 2020-08-05 19:38 | XMS REPORT | Continuity of Care Document ---
:1980 Author Organization [facility] t Address [address] [place] [address] Dr. Conley [address] [place] [id number] Care Team Providers Name Role Phone Unavailable Unavailable Unavailable Problems This patient has no known problems. Allergies, Adverse Reactions, Alerts This patient has no known allergies or adverse reactions. Medications This patient has no known medications. Procedures This patient has no known procedures. Results This patient has no known results.
[2020-08-05] MEDS ORDERED: BUPIVACAINE 0.5% PF 10 ML VIAL ONE (20:21)
[2020-08-05] MEDS ORDERED: LIDOCAINE 1% 20 ML MDV ONE (20:21)
[2020-08-05] MEDS ORDERED: TETANUS & DIPHTHERIA TOX,ADULT 0.5 ML VIAL ONE (20:52)
[2020-08-05] MEDS ORDERED: NA CHLORIDE 0.9% 1,000 ML ONE (20:52)
[2020-08-05] MEDS ORDERED: CEFAZOLIN/SWI 1gm 2 GM/20 ML SYR ONE (20:53)
--- NOTE | 2020-08-05 20:58 | RAD REPORT ---
EXAM DESCRIPTION: RAD - Hand Left 3 View - 08/05/2020 8:35 pm CLINICAL HISTORY: PAIN, crush injury, pain to the second- fourth digits COMPARISON: None. FINDINGS: Fractures are present involving the tuft second distal phalanx and the tuft and shaft of t he fourth distal phalanx. Fracture is present through the ulna side base of the third distal phalanx with additional fracture extending along the shaft into the tuft. No significant distraction or angul ation deformity. Proximal and middle phalanges are intact. No foreign body or other soft tissue abnor mality. IMPRESSION: Fractures of the left hand second- fourth distal phalanges present as detailed.
--- NOTE | 2020-08-05 21:45 | EDPHYS ---
Physician Documentation [facility] Name: Tyson Villafana Age: 39 yrs Sex: Male : 1980 Arrival Date: 08/05/2020 Time: 19:38 Bed 3 Private MD: [place] Physician Axel Moreno HPI: 08/05 20:12 This 39 yrs old Male presents to ER via Ambulatory with complaints of Hand ramila Injury. 20:12 The patient or guardian reports decreased range of motion, deformity, pain, swelling, ramila tenderness. The complaints affect the DIP of left middle finger, PIP of left middle finger, DIP of left index finger and PIP of left index finger. Context: The problem was sustained at home, resulted from a crush injury, by a heavy object. Onset: The symptoms/episode began/occurred just prior to arrival. Modifying factors: The symptoms are alleviated by holding still. Associated signs and symptoms: The patient has no apparent associated signs or symptoms. Severity of symptoms: At their worst the symptoms were moderate. The patient has not experienced similar symptoms in the past. Historical: - Allergies: 19:47 Phenobarbital; ll1 - PMHx: 19:47 Depression; Seizures; ll1 - PSHx: 19:47 None; ll1 - Immunization history:: Last tetanus immunization: unknown. - Social history:: Smoking status: Patient reports the use of cigarette tobacco products, smokes one-half pack cigarettes per day. - Family history:: not pertinent. ROS: 20:12 Constitutional: Negative for fever, chills, and weight loss, Eyes: Negative for injury, ramila pain, redness, and discharge, ENT: Negative for injury, pain, and discharge, Neck: Negative for injury, pain, and swelling, Cardiovascular: Negative for chest pain, palpitations, and edema, Respiratory: Negative for shortness of breath, cough, wheezing, and pleuritic chest pain, Abdomen/GI: Negative for abdominal pain, nausea, vomiting, diarrhea, and constipation, Back: Negative for injury and pain, : Negative for injury, bleeding, discharge, and swelling, Skin: Negative for injury, rash, and discoloration, Neuro: Negative for headache, weakness, numbness, tingling, and seizure, Psych: Negative for depression, anxiety, suicide ideation, homicidal ideation, and hallucinations, Allergy/Immunology: Negative for hives, rash, and allergies, Endocrine: Negative for neck swelling, polydipsia, polyuria, polyphagia, and marked weight changes. 20:12 MS/extremity: Positive for decreased range of motion, laceration, pain, tenderness, of the palmar aspect of distal phalanx of left middle finger, palmar aspect of middle phalanx of left middle finger, palmar aspect of distal phalanx of left index finger and palmar aspect of middle phalanx of left index finger. Exam: 20:12 Constitutional: This is a well developed, well nourished patient who is awake, alert, ramila and in no acute distress. Head/Face: Normocephalic, atraumatic. Eyes: Pupils equal round and reactive to light, extra-ocular motions intact. Lids and lashes normal. Conjunctiva and sclera are non-icteric and not injected. Cornea within normal limits. Periorbital areas with no swelling, redness, or edema. ENT: Nares patent. No nasal discharge, no septal abnormalities noted. Tympanic membranes are normal and external auditory canals are clear. Oropharynx with no redness, swelling, or masses, exudates, or evidence of obstruction, uvula midline. Mucous membranes moist. Neck: Trachea midline, no thyromegaly or masses palpated, and no cervical lymphadenopathy. Supple, full range of motion without nuchal rigidity, or vertebral point tenderness. No Meningismus. Chest/axilla: Normal chest wall appearance and motion. Nontender with no deformity. No lesions are appreciated. Cardiovascular: Regular rate and rhythm with a normal S1 and S2. No gallops, murmurs, or rubs. Normal PMI, no JVD. No pulse deficits. Respiratory: Lungs have equal breath sounds bilaterally, clear to auscultation and percussion. No rales, rhonchi or wheezes noted. No increased work of breathing, no retractions or nasal flaring. Abdomen/GI: Soft, non-tender, with normal bowel sounds. No distension or tympany. No guarding or rebound. No evidence of tenderness throughout. Back: No spinal tenderness. No costovertebral tenderness. Full range of motion. Male : Normal genitalia with no discharge or lesions. Skin: Warm, dry with normal turgor. Normal color with no rashes, no lesions, and no evidence of cellulitis. Neuro: Awake and alert, GCS 15, oriented to person, place, time, and situation. Cranial nerves II-XII grossly intact. Motor strength 5/5 in all extremities. Sensory grossly intact. Cerebellar exam normal. Normal gait. Psych: Awake, alert, with orientation to person, place and time. Behavior, mood, and affect are within normal limits. 20:12 Musculoskeletal/extremity: ROM: limited active range of motion due to pain, limited passive range of motion due to pain, in the palmar aspect of distal phalanx of left ring finger, palmar aspect of distal phalanx of left middle finger, palmar aspect of middle phalanx of left middle finger, palmar aspect of distal phalanx of left index finger and palmar aspect of middle phalanx of left index finger, Circulation is intact in all extremities. Sensation intact. Compartment Syndrome exam of affected extremity: is normal. Vital Signs: 19:47 BP 187 / 101; Pulse 107; Resp 18; Temp 97.7; Pulse Ox 98% ; Weight 84.82 kg; Height 6 ll1 ft. (182.88 cm); Pain 10/10; 22:15 BP 119 / 71; Pulse 91; Resp 20; Pulse Ox 97% on R/A; jb4 19:47 Body Mass Index 25.36 (84.82 kg, 182.88 cm) ll1 Carmen Coma Score: 22:15 Eye Response: spontaneous(4). Verbal Response: oriented(5). Motor Response: obeys jb4 commands(6). Total: 15. Trauma Score (Adult): 22:15 Eye Response: spontaneous(1); Verbal Response: oriented(1); Motor Response: obeys jb4 commands(2); Systolic BP: > 89 mm Hg(4); Respiratory Rate: 10 to 29 per min(4); Richmond Score: 15; Trauma Score: 12 Laceration: 21:42 Wound Repair of 3cm ( 1.2in ) subcutaneous laceration to PIP of left index finger and ramila PIP of left middle finger. Irregularly shaped.. Skin/tissue flap noted.. Distal neuro/vascular/tendon intact. Anesthesia: Digital block administered with 5 mls of 1% lidocaine, Digital block administered with 5 mls of 0.5% marcaine. Wound prep: Moderate cleansing with betadine by nd. Skin closed with 5 5-0 Prolene using interrupted sutures and sterile technique. Dressed with Neosporin. Patient tolerated well. MDM: 19:59 Patient medically screened. [facility] 20:14 Differential diagnosis: dislocation, open fracture, contusion, tendonitis. Data [facility] reviewed: vital signs, nurses notes, radiologic studies, plain films. Data interpreted: cafeteria monitor: rate is 107 beats/min, rhythm is regular, Pulse oximetry: on room air is 98 %. Test interpretation: by ED physician or midlevel provider: plain radiologic studies. Counseling: I had a detailed discussion with the patient and/or guardian regarding: the historical points, exam findings, and any diagnostic results supporting the discharge/admit diagnosis, radiology results, the need for outpatient follow up, for definitive care, a hand specialist. 08/05 20:12 Order name: Hand Left 3 View XRAY; Complete Time: 21:54 [facility] 08/05 20:01 Order name: Prolene, Sutures; Complete Time: 20:07 [facility] 08/05 20:01 Order name: Dressing - Wound; Complete Time: 22:28 [facility] 08/05 20:01 Order name: Gloves, Sterile; Complete Time: 20:07 [facility] 08/05 20:01 Order name: Setup Suture Tray; Complete Time: 20:07 [facility] 08/05 22:00 Order name: Splint: volar splint; Complete Time: 22:14 [facility] 08/05 22:00 Order name: Dressing - Wound; Complete Time: 22:14 [facility] Administered Medications: 20:42 Drug: Tetanus-Diphtheria Toxoid Adult 0.5 ml {Router 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 Exp: 10/21/2021. Lot #: [id number]. } Route: IM; Site: right deltoid; 22:14 Follow up: Response: No adverse reaction 20:44 Drug: NS 0.9% 1000 ml Route: IV; Rate: 1 bolus; Site: right antecubital; 20:46 Drug: Ancef 2 grams {Note: Given IV push preparation.} Route: IVPB; Infused Over: 30 wh mins; Site: right antecubital; 21:18 Follow up: Response: No adverse reaction; IV Status: Completed infusion 21:18 Drug: Lidocaine (1 %) 1 application {Note: Administered by MD.} Volume: 20 ml; Route: wh Infiltration; 21:18 Drug: Marcaine (0.5 %) 1 application {Note: Administered by MD.} Volume: 10 ml; Route: wh Infiltration; Disposition: 08/05/20 21:45 Discharged to Home. Impression: Crushing injury of left hand, Displaced fracture of distal phalanx of left middle finger, Displaced fracture of distal phalanx of left index finger. - Condition is Stable. - Discharge Instructions: Finger Fracture, Laceration Care, Adult, Finger Fracture, [id number], Laceration Care, Adult, [id number], Crush Injury of the Hand, [id number], Crush Injury of the Hand. - Prescriptions for Bactroban 2 % Topical Ointment - Apply to affected area 1 application by TOPICAL route every 12 hours; 30 gram. Keflex 500 mg Oral Capsule - take 1 capsule by ORAL route every 6 hours for 10 days; 40 capsule. Tylenol- Codeine #3 300-30 mg Oral Tablet - take 2 tablet by ORAL route every 6 hours As needed; 30 tablet. - Medication Reconciliation Form, Thank You Letter, Antibiotic Education, Prescription Opioid Use form. - Follow up: Private Physician; When: 2 - 3 days; Reason: Recheck today's complaints, Continuance of care, Re-evaluation by your physician. Follow up: Mohan Maldonado MD; When: 2 - 3 days; Reason: Recheck today's complaints, Continuance of care, Re-evaluation by your physician. - Problem is new. - Symptoms have improved. Signatures: Dispatcher [employer] EDVA Nataliia Lindsay, MACHINE LEARNING INTERN-C MACHINE LEARNING INTERN-Ckb Axel Moreno MD MD cha Bryson, James RN RN jb4 Flor Moreno RN RN Annika Chicas mw2 Zenaida West RN RN ll1 Corrections: (The following items were deleted from the chart) 22:28 21:45 08/05/2020 21:45 Discharged to Home. Impression: Crushing injury of left hand; mw2 Displaced fracture of distal phalanx of left middle finger; Displaced fracture of distal phalanx of left index finger. Condition is Stable. Forms are Medication Reconciliation Form, Thank You Letter, Antibiotic Education, Prescription Opioid Use. Follow up: Private Physician; When: 2 - 3 days; Reason: Recheck today's complaints, Continuance of care, Re-evaluation by your physician. Follow up: Mohan Maldonado; When: 2 - 3 days; Reason: Recheck today's complaints, Continuance of care, Re-evaluation by your physician. Problem is new. Symptoms have improved. ramila
--- NOTE | 2020-08-05 21:45 | ER ---
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 Bleeding to 2nd and 3rd noted. Possible open fracture, trauma alert called. Coronavirus screen: Client denies travel out of the [place] in the last 14 days. At this time, the client does not indicate any symptoms associated with coronavirus-19. Ebola Screen: Patient denies travel to an Ebola-affected area in the 21 days before illness onset. Initial Sepsis Screen: Does the patient meet any 2 criteria? HR > 90 bpm. No. Patient's initial sepsis screen is negative. Does the patient have a suspected source of infection? Yes: Skin breakdown/wound Bone or joint infection. Risk Assessment: Do you want to hurt yourself or someone else? Patient reports no desire to harm self or others. Onset of symptoms was August 05, 2020. 19:47 Method Of Arrival: Ambulatory ll1 19:47 Acuity: KARINA 2 ll1 Historical: - Allergies: 19:47 Phenobarbital; ll1 - PMHx: 19:47 Depression; Seizures; ll1 - PSHx: 19:47 None; ll1 - Immunization history:: Last tetanus immunization: unknown. - Social history:: Smoking status: Patient reports the use of cigarette tobacco products, smokes one-half pack cigarettes per day. - Family history:: not pertinent. Screenin:58 Abuse screen: Denies threats or abuse. Nutritional screening: No deficits noted. jb4 Tuberculosis screening: No symptoms or risk factors identified. Fall Risk None identified. Assessment: 19:58 General: Appears in no apparent distress. uncomfortable, Behavior is calm, cooperative. jb4 Pain: Complains of pain in palmar aspect of distal phalanx of left ring finger, palmar aspect of middle phalanx of left ring finger, palmar aspect of proximal phalanx of left ring finger, palmar aspect of distal phalanx of left middle finger, palmar aspect of middle phalanx of left middle finger, palmar aspect of proximal phalanx of left middle finger, palmar aspect of distal phalanx of left index finger, palmar aspect of middle phalanx of left index finger and palmar aspect of proximal phalanx of left index finger Pain does not radiate. Pain currently is 10 out of 10 on a pain scale. Quality of pain is described as throbbing, numb. Neuro: Level of Consciousness is awake, alert, obeys commands, Oriented to person, place, time, situation. Cardiovascular: Patient's skin is warm and dry. Respiratory: Airway is patent Respiratory effort is even, unlabored, Respiratory pattern is regular, symmetrical. GI: No signs and/or symptoms were reported involving the gastrointestinal system. : No signs and/or symptoms were reported regarding the genitourinary system. EENT: No signs and/or symptoms were reported regarding the EENT system. Derm: Skin is pink, warm \T\ dry. Musculoskeletal: Circulation, motion, and sensation intact. Range of motion: intact in all extremities. 21:00 Reassessment: Patient appears in no apparent distress at this time. Patient and/or jb4 family updated on plan of care and expected duration. Pain level reassessed. Patient is alert, oriented x 3, equal unlabored respirations, skin warm/dry/pink. 21:15 Reassessment: Provider at the bedside performing laceration repair. jb4 22:15 Reassessment: Patient appears in no apparent distress at this time. Patient and/or jb4 family updated on plan of care and expected duration. Pain level reassessed. Patient is alert, oriented x 3, equal unlabored respirations, skin warm/dry/pink. Vital Signs: 19:47 BP 187 / 101; Pulse 107; Resp 18; Temp 97.7; Pulse Ox 98% ; Weight 84.82 kg; Height 6 ll1 ft. (182.88 cm); Pain 10/10; 22:15 BP 119 / 71; Pulse 91; Resp 20; Pulse Ox 97% on R/A; jb4 19:47 Body Mass Index 25.36 (84.82 kg, 182.88 cm) ll1 [place] Coma Score: 22:15 Eye Response: spontaneous(4). Verbal Response: oriented(5). Motor Response: obeys jb4 commands(6). Total: 15. Trauma Score (Adult): 22:15 Eye Response: spontaneous(1); Verbal Response: oriented(1); Motor Response: obeys jb4 commands(2); Systolic BP: > 89 mm Hg(4); Respiratory Rate: 10 to 29 per min(4); Carmen Score: 15; Trauma Score: 12 ED Course: 19:38 Patient arrived in ED. cl3 19:46 Arm band placed on Patient placed in an exam room, on a stretcher. ll1 19:49 Francisco Marte, CINTHIA is Primary Nurse. jb4 19:49 Triage completed. ll1 19:58 Axel Moreno MD is Attending Physician. ramila 19:58 Patient has correct armband on for positive identification. Bed in low position. Call jb4 light in reach. Side rails up X 1. Pulse ox on. NIBP on. 20:33 Inserted saline lock: 20 gauge in right antecubital area, using aseptic technique. oe 20:35 Hand Left 3 View XRAY In Process Unspecified. EDMS 21:44 Mohan Maldonado MD is Referral Physician. ramila 22:15 No provider procedures requiring assistance completed. IV discontinued, intact, jb4 bleeding controlled, No redness/swelling at site. Pressure dressing applied. 22:20 Dressings: Adaptic X 1; DIP of left index finger and DIP of left middle finger 4X4s X jp3 4; DIP of left index finger and DIP of left middle finger. Orthoglass splint: Volar splint applied on left arm. Wound care: to laceration located on palmar aspect of middle phalanx of left index finger and palmar aspect of middle phalanx of left ring finger was cleaned with Hibiclens, Patient tolerated well. 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 Exp: 10/21/2021. Lot #: [id number]. } Route: IM; Site: right deltoid; 22:14 Follow up: Response: No adverse reaction 20:44 Drug: NS 0.9% 1000 ml Route: IV; Rate: 1 bolus; Site: right antecubital; 20:46 Drug: Ancef 2 grams {Note: Given IV push preparation.} Route: IVPB; Infused Over: 30 wh mins; Site: right antecubital; 21:18 Follow up: Response: No adverse reaction; IV Status: Completed infusion 21:18 Drug: Lidocaine (1 %) 1 application {Note: Administered by MD.} Volume: 20 ml; Route: wh Infiltration; 21:18 Drug: Marcaine (0.5 %) 1 application {Note: Administered by MD.} Volume: 10 ml; Route: Infiltration; Outcome: 21:45 Discharge ordered by MD. mcgrath 22:15 Discharged to home ambulatory. chalo 22:15 Condition: stable 22:15 Discharge instructions given to patient, Instructed on discharge instructions, follow up and referral plans. medication usage, Demonstrated understanding of instructions, follow-up care, medications, Prescriptions given X 3. 22:28 Patient left the ED. mw2 Signatures: Dispatcher [employer] EDAxel Gamez MD MD cha Bryson, James, RN RN jb4 Meir Asher Winsy, RN RN Annika Chicas mw2 Jose L Grayson Charde cl3 Lewis, Lynsay, RN RN ll1
[2020-08-05 22:33] VITALS: BP 187/101; TEMP 97.7; O2SAT 98
== END 2020-08-05 22:28 | disposition home or self-care (01) ==
LOC: ER 19:36
PROC: 0HQGXZZ Repair Left Hand Skin, External Approach (ICD-10-PCS; principal; 2020-08-05)
DX: S62.633A Displaced fracture of distal phalanx of left middle finger, initial encounter for closed fracture (principal); S62.631A Displaced fracture of distal phalanx of left index finger, initial encounter for closed fracture; S61.211A Laceration without foreign body of left index finger without damage to nail, initial encounter; S61.213A Laceration without foreign body of left middle finger without damage to nail, initial encounter; W23.0XXA Caught, crushed, jammed, or pinched between moving objects, initial encounter; Y92.009 Unspecified place in unspecified non-institutional (private) residence as the place of occurrence of the external cause; Z23 Encounter for immunization; F32.9 Major depressive disorder, single episode, unspecified; F17.210 Nicotine dependence, cigarettes, uncomplicated
CPT/HCPCS: 90471; 90714; 96365; 99284; J0690; J7030